=== PATIENT | male | born 1990 | race Caucasian/White ===

== ENCOUNTER 2019-11-07 21:16 | Emergency (ER) | payer SELFPAY ==
[~2019-11-07] VITALS: Ht 177.8 cm; Wt 90.7 kg
[2019-11-08 02:06] VITALS: BP 136/66
== END 2019-11-08 02:27 | disposition home or self-care (01) ==
LOC: EDBD 21:16 → ER 21:20
DX: S82.51XA Displaced fracture of medial malleolus of right tibia, initial encounter for closed fracture (principal); S82.421A Displaced transverse fracture of shaft of right fibula, initial encounter for closed fracture; W19.XXXA Unspecified fall, initial encounter; Y93.51 Activity, roller skating (inline) and skateboarding; Y92.89 Other specified places as the place of occurrence of the external cause; Y99.8 Other external cause status
CPT/HCPCS: 29515; 73610